=== PATIENT | male | born 1970 | race Caucasian/White ===

== ENCOUNTER 2018-07-04 23:28 | Emergency (ER) | payer OTHER ==
[2018-07-04 23:39] VITALS: TEMP 98.5
--- NOTE | 2018-07-05 00:27 | ED ---
General Adult HPI - General Chief complaint: Needlestick/Exposure Stated complaint: needlestick-[facility] Time Seen by Provider: 07/05/18 00:10 Source: patient, RN notes reviewed Mode of arrival: ambulatory Limitations: no limitations - History of Present Illness Initial comments: This is a 48-year-old male who presents to the emergency department with chief complaint work-related needlestick injury. 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 He states that at approximately 9 PM he was administering insulin to a resident. He states he withdrew the needle, the resident rotated their shoulders, hitting him in the arm and causing him to stick the needle into his own left middle finger. Patient states he is fully up-to-date with all vaccinations. Denies history of HIV or hepatitis. He states that the resident/source does not have a recorded history of hepatitis or HIV. Patient denies any recent fevers or chills, chest pain or shortness of breath, abdominal pain, nausea or vomiting. - Related Data Home Medications Medication Instructions Recorded Confirmed Albuterol Inhaler [Ventolin Hfa 2 puff INHALATION RT-Q6H PRN 03/16/16 07/04/18 Inhaler] Budesonide/Formoterol Fumarate 2 puff INHALATION BID 07/04/18 07/04/18 [Symbicort 160-4.5 Mcg Inhaler] Allergies Allergy/AdvReac Type Severity Reaction Status Date / Time Sulfa (Sulfonamide Allergy Rapid Verified 03/16/16 14:58 Antibiotics) Heart Rate theophylline Allergy Rapid Verified 03/16/16 14:58 Heart Rate Review of Systems ROS Statement: Those systems with pertinent positive or pertinent negative responses have been documented in the HPI. ROS Other: All systems not noted in ROS Statement are negative. Past Medical History Past Medical History: Asthma Additional Past Medical History / Comment(s): Kidney stone 04/2015 History of Any Multi-Drug Resistant Organisms: None Reported Past Surgical History: Adenoidectomy, Appendectomy, Cholecystectomy, Hernia Repair, Orthopedic Surgery, Tonsillectomy Additional Past Surgical History / Comment(s): deviated septum, dentures, EGD, left and rt inguinal hernia repair and Rt knee arthroscopic Past Anesthesia/Blood Transfusion Reactions: No Reported Reaction Past Psychological History: No Psychological Hx Reported Smoking Status: Current every day smoker Past Alcohol Use History: None Reported Past Drug Use History: None Reported - Past Family History Father Family Medical History: Congestive Heart Failure (CHF), COPD, Coronary Artery Disease (CAD), CVA/TIA, Myocardial Infarction ([place]), Sleep Apnea/CPAP/BIPAP, Syncope Mother Additional Family Medical History / Comment(s): allergies General Exam - General Exam Comments Initial Comments: General: Awake and alert, well-developed; in no apparent distress. HEENT: Head atraumatic, normocephalic. Pupils are equal, round and reactive to light. Extraocular movements intact. Oropharynx moist without erythema or exudate. Neck: Supple. Normal ROM. Cardiovascular: Regular rate and rhythm. No murmurs, rubs or gallops. Chest symmetrical. Respiratory: Lungs clear to auscultation bilaterally. No wheezes, rales or rhonchi. Normal respiratory effort with no use of accessory muscles. Musculoskeletal: Normal ROM, no tenderness bilateral upper and lower extremities. Ambulating normally. Skin: Small, erythematous punctate lesion mid lateral left middle finger. No active bleeding. Neurological: Alert and oriented x3. CN II-XII grossly intact. Speech is fluent and answers are appropriate. No focal neuro deficits. Psychiatric: Normal mood and affect. No overt signs of depression or anxiety noted. Course Vital Signs 07/04/18 07/05/18 23:35 00:54 Temperature 98.5 F Pulse Rate 78 80 Respiratory 20 18 Rate Blood Pressure 133/90 126/87 O2 Sat by Pulse 99 98 Oximetry Medical Decision Making - Medical Decision Making This is a 48-year-old male who presents to the emergency department with chief complaint of work-related needlestick exposure. Patient reports an accidental needlestick while administering insulin to a resident. States he is up-to-date with his vaccinations. States he is not concerned for exposure to hepatitis or HIV. Discussed prophylaxis and patient refuses at this time. Blood work is drawn and is pending. Vitals are stable and patient is in no acute distress. He will be discharged home at this time. He is in agreement with plan and voices understanding. All questions were answered. Disposition Clinical Impression: Needlestick injury of finger Disposition: HOME SELF-CARE Condition: Good Instructions: Needle Stick Injuries (ED) Additional Instructions: Please follow up with primary care provider within 1-2 days. Return to emergency department if symptoms should worsen or any concerns arise. Is patient prescribed a controlled substance at d/c from ED?: No Referrals: Bryon Buck MD [Primary Care Provider] - 1-2 days Time of Disposition: 00:39
[2018-07-05 00:58] VITALS: BP 126/87; PULSE 80; RESP 18
[2018-07-05 11:49] LABS: Hepatitis B Surface AB- Quant 62.5 mIU/mL; Hepatitis C IgG Antibody Non-Reactive (Non-Reactive)
[2018-07-05 12:26] LABS: HIV 1 AB Non-Reactive (Non-Reactive); HIV AB P24 Non-Reactive (Non-Reactive); HIV P24 AG Non-Reactive (Non-Reactive)
== END 2018-07-05 00:58 | disposition home or self-care (01) ==
LOC: SUPCPDRO 23:28 → EC 23:28
DX: S61.233A Puncture wound without foreign body of left middle finger without damage to nail, initial encounter (principal); L08.9 Local infection of the skin and subcutaneous tissue, unspecified; J45.909 Unspecified asthma, uncomplicated; F17.200 Nicotine dependence, unspecified, uncomplicated; Z79.899 Other long term (current) drug therapy; Z88.2 Allergy status to sulfonamides; Z88.8 Allergy status to other drugs, medicaments and biological substances; Z77.21 Contact with and (suspected) exposure to potentially hazardous body fluids; W46.0XXA Contact with hypodermic needle, initial encounter
CPT/HCPCS: 36415; 86706; 86803; 87390; 99283

== ENCOUNTER → 2019-07-02 | Outpatient (CLI) | payer OTHER ==
--- NOTE | 2019-07-02 10:27 | XR ---
EXAMINATION TYPE: XR shoulder complete LT DATE OF EXAM: 07/02/2019 CLINICAL HISTORY: Left shoulder pain after lifting injury TECHNIQUE: Three views of the left shoulder are obtained. COMPARISON: None. FINDINGS: There is no acute fracture/dislocation evident in the left shoulder. The acromioclavicula r and glenohumeral joint spaces aligned with small osteophytes of the acromioclavicular joint and sub cortical cysts of the inferior glenoid. The visualized ribs are intact and unremarkable. IMPRESSION: There is no acute fracture or dislocation in the left shoulder. Mild left acromioclavicu lar and glenohumeral arthropathy.
== END ==
LOC: RADXRMAIN 10:05
PROVIDERS: ATTEND Emergency Medicine
DX: M12.812 Other specific arthropathies, not elsewhere classified, left shoulder (principal)

== ENCOUNTER → 2019-07-03 | Outpatient (CLI) | payer OTHER ==
--- NOTE | 2019-07-03 17:03 | US ---
EXAMINATION TYPE: US venous doppler duplex UE LT DATE OF EXAM: 07/03/2019 COMPARISON: NONE CLINICAL HISTORY: S46.91LA R20.9 M79.622. SIDE PERFORMED: Grayscale, color doppler, spectral doppler imaging performed of the deep veins of the left upper extr emity. Visualized portions of the left internal jugular vein, subclavian vein, axillary vein, brachial veins , basilic vein, radial and ulnar veins show no abnormal luminal echoes and normal compressibility, th ere is normal color flow. Left Arm: Negative for DVT Cephalic vein not seen. There is normal flow, compressability and vascular waveforms. IMPRESSION: No evident deep venous thrombosis in the deep veins of the left upper extremity and the visualized portions.
== END | disposition home or self-care (01) ==
LOC: RADXRMAIN 16:19
PROVIDERS: ATTEND Emergency Medicine
DX: S46.912A Strain of unspecified muscle, fascia and tendon at shoulder and upper arm level, left arm, initial encounter (principal); R20.9 Unspecified disturbances of skin sensation